=== PATIENT | female | born 1990 | race Caucasian/White ===

== ENCOUNTER 2017-08-18 20:11 | Emergency (ER) | payer MEDICAID ==
[~2017-08-18] VITALS: Ht 157.5 cm; Wt 120.5 kg
[2017-08-18 20:32] VITALS: BP 128/62; PULSE 77; RESP 14; TEMP 98.6; O2SAT 99
--- NOTE | 2017-08-18 21:09 | PD ---
HPI Chief Complaint: Aluminum Welder Problem/Complaint Time Seen by Provider: 21:00 Travel History International Travel<30 days: No Contact w/Intl Traveler<30days: No Traveled to known affect area: No History of Present Illness HPI 27yo F with PMH of hypothyroidism presents to the ED with c/o vaginal bleeding and cramping today. Said her LMP is sometime in June. Pt did not take a test today but had a tissue passed with her contractions and thinks she may have had a miscarriage. Denies any fever, chest pain, sob, vomiting, dysuria, focal weakness or numbness. PFSH Past Medical History ?: Unknown LMP: Social History Tobacco Use: No Allergies-Medications (Allergen,Severity, Reaction): Coded Allergies: hydrocodone (Verified Allergy, Unknown, 08/18/17) Reported Meds & Prescriptions Reported Meds & Active Scripts Active Macrobid (Nitrofurantoin Monohydrate Macrocrystals) 100 Mg Capsule 100 Mg PO BID 5 Days Review of Systems Except as stated in HPI: all other systems reviewed are Neg Physical Exam Narrative GENERAL: 27yo F not in distress. SKIN: Focused skin assessment warm/dry. HEAD: Atraumatic. Normocephalic. CARDIOVASCULAR: Regular rate and rhythm. No murmur appreciated. RESPIRATORY: No accessory muscle use. Clear to auscultation. Breath sounds equal bilaterally. GASTROINTESTINAL: Abdomen soft, non-tender, nondistended. No rebound tenderness or guarding. PELVIC:Cervical os is closed. There is small amounts of blood in vaginal vault. No CMT or adnexal tenderness bilaterally. MUSCULOSKELETAL: No obvious deformities. No clubbing. No cyanosis. No edema. NEUROLOGICAL: Awake and alert. No obvious cranial nerve deficits. Motor grossly within normal limits. Normal speech. PSYCHIATRIC: Appropriate mood and affect; insight and judgment normal. Data Data Last Documented VS Vital Signs Date Time Temp Pulse Resp B/P (MAP) Pulse Ox O2 Delivery O2 Flow Rate FiO2 08/19/17 00:45 98.2 89 16 134/67 (89) 100 Nasal Cannula Orders Orders Beta Hcg (Quant/Titer) (08/18/17 21:06) Complete Blood Count With Diff (08/18/17 21:06) Basic Metabolic Panel (Bmp) (08/18/17 21:06) Gc And Chlamydia Pcr (08/18/17 21:06) Type And Screen (08/18/17 21:06) Wet Prep Profile (08/18/17 21:06) Thyroid Stimulating Hormone (08/18/17 21:24) Urinalysis - C+S If Indicated (08/18/17 22:30) Us Pelvis (Ques Pr/Ect)W Trans (08/18/17 ) Ed Discharge Order (08/19/17 00:18) Labs Laboratory Tests Test 08/18/17 21:24 08/18/17 21:32 08/18/17 22:34 White Blood Count 15.0 TH/MM3 Red Blood Count 4.82 MIL/MM3 Hemoglobin 12.7 GM/DL Hematocrit 38.1 % Mean Corpuscular Volume 79.0 FL Mean Corpuscular Hemoglobin 26.3 PG Mean Corpuscular Hemoglobin Concent 33.3 % Red Cell Distribution Width 12.1 % Platelet Count 321 TH/MM3 Mean Platelet Volume 8.4 FL Neutrophils (%) (Auto) 67.5 % Lymphocytes (%) (Auto) 23.7 % Monocytes (%) (Auto) 5.5 % Eosinophils (%) (Auto) 1.4 % Basophils (%) (Auto) 1.9 % Neutrophils # (Auto) 10.1 TH/MM3 Lymphocytes # (Auto) 3.6 TH/MM3 Monocytes # (Auto) 0.8 TH/MM3 Eosinophils # (Auto) 0.2 TH/MM3 Basophils # (Auto) 0.3 TH/MM3 CBC Comment DIFF FINAL Differential Comment Blood Urea Nitrogen 11 MG/DL Creatinine 0.69 MG/DL Random Glucose 84 MG/DL Calcium Level 8.6 MG/DL Sodium Level 136 MEQ/L Potassium Level 3.4 MEQ/L Chloride Level 103 MEQ/L Carbon Dioxide Level 23.8 MEQ/L Anion Gap 9 MEQ/L Estimat Glomerular Filtration Rate 103 ML/MIN Thyroid Stimulating Hormone 3rd Gen 3.440 uIU/ML Human Chorionic Gonadotropin, Quant 3904 MIU/ML Clue Cells (Wet Prep) NONE SEEN Vaginal Trichomonas (Wet Prep) NONE SEEN Vaginal Yeast (Wet Prep) NONE SEEN Chlamydia trachomatis DNA (PCR) NOT DETECTED Neisseria gonorrhoeae DNA (PCR) NOT DETECTED Urine Color YELLOW Urine Turbidity HAZY Urine pH 6.0 Urine Specific [place] 1.020 Urine Protein NEG mg/dL Urine Glucose (UA) NEG mg/dL Urine Ketones NEG mg/dL Urine Occult Blood LARGE Urine Nitrite NEG Urine Bilirubin NEG Urine Leukocyte Esterase SMALL Urine RBC 50-99 /hpf Urine WBC 6-8 /hpf Urine Squamous Epithelial Cells 6-8 /hpf Urine Bacteria FEW /hpf Microscopic Urinalysis Comment CULT NOT INDICATED MDM Medical Decision Making Medical Screen Exam Complete: Yes Emergency Medical Condition: Yes Differential Diagnosis complete vs. incomplete vs. UTI vs. ectopic Narrative Course 27yo F with cramping and vaginal bleeding. Pt had a passage of tissue likely products of conception. Labs reviewed, mild leukocytosis. H/H normal. bHCG 3904. UA showed large blood. WBC 6-8 with squamous 6-8. Few bacteria. Will cover with macrobid. Wet prep negative. bHCG 3904. Type and screen O+ so pt does not need rhogam. US pelvis showed no definite intrauterine gestational sac. Complex heterogenous collection in endometrium may reflect blood products/ in progress. Bilateral ovaries showed no mass. No free fluid. Pt instructed to follow up with OBGYN in 1-2 days. Return precautions given. Diagnosis Primary Impression: Vaginal bleeding during Referrals: Yolande Scales MD 1 day Patient Instructions: General Instructions Departure Forms: Tests/Procedures Additional Instructions: Please follow up with OBGYN in 1-2 days. Return to the ED if symptoms worsen. Med/Other Pt SpecificInfo: Prescription(s) given Scripts Nitrofurantoin Monohydrate Macrocrystals (Macrobid) 100 Mg Capsule 100 MG PO BID for Infection for 5 Days, #10 CAP 0 Refills Prov: Jeannie Rousseau DO 08/19/17 Disposition: 01 DISCHARGE HOME Condition: Stable Jeannie Rousseau DO Aug 18, 2017 21:09
[2017-08-18 21:35] LABS: AUTOMATED NEUTROPHIL # 10.1 TH/MM3 (1.8-7.7); BASOPHIL # 0.3 TH/MM3 (0-0.2); BASOPHIL % 1.9 % (0.0-2.0); EOSINOPHIL # 0.2 TH/MM3 (0-0.4); EOSINOPHIL % 1.4 % (0.0-4.0); HEMATOCRIT 38.1 % (35.0-46.0); HEMOGLOBIN 12.7 GM/DL (11.6-15.3); LYMPH % 23.7 % (9.0-44.0); LYMPHOCYTE # 3.6 TH/MM3 (1.0-4.8); MEAN CORPUSCULAR HEMOGLOBIN 26.3 PG (27.0-34.0); MEAN CORPUSCULAR HGB CONC 33.3 % (32.0-36.0); MEAN PLATELET VOLUME 8.4 FL (7.0-11.0); MONO % 5.5 % (0.0-8.0); MONOCYTE # 0.8 TH/MM3 (0-0.9); NEUT % 67.5 % (16.0-70.0); PLATELET COUNT 321 TH/MM3 (150-450); RED BLOOD COUNT 4.82 MIL/MM3 (4.00-5.30); RED CELL DISTRIBUTION WIDTH 12.1 % (11.6-17.2)
[2017-08-18 21:42] LABS: BICARBONATE 23.8 MEQ/L (21.0-32.0); CALCIUM 8.6 MG/DL (8.5-10.1)
[2017-08-18 21:46] LABS: CREATININE 0.69 MG/DL (0.50-1.00)
[2017-08-18 22:45] VITALS: BP 125/68; PULSE 89; RESP 18; TEMP 98.6; O2SAT 100
[2017-08-18 23:07] LABS: BILIRUBIN, URINE NEG (NEG); BLOOD, URINE LARGE (NEG); GLUCOSE,URINE NEG (NEG); KETONE, URINE NEG (NEG); NITRITE,URINE NEG (NEG); URINE LEUKOCYTE ESTERASE SMALL (NEG)
[2017-08-18 23:09] LABS: URINE COLOR YELLOW (YELLW/STRAW)
[2017-08-18 23:12] LABS: BACTERIA, URINE FEW /hpf
--- NOTE | 2017-08-18 23:26 | RADRPT ---
EXAM DATE/TIME: 08/18/2017 22:34 [facility] COMPARISON: No previous studies available for comparison. INDICATIONS : Miscarriage. LAB(S): [facility] MEDICAL HISTORY : . SURGICAL HISTORY : None. ENCOUNTER: Initial ACUITY: 1 day PAIN SCORE: 3/10 LOCATION: Bilateral pelvis MEASUREMENTS: UTERUS: 7.9 x 5.3 x cm ENDOMETRIAL STRIPE: 17 mm RIGHT OVARY: 3.0 x 1.6 x 2.5 cm LEFT OVARY: 2.8 x 1.4 x 1.5 cm FREE FLUID: No CROWN RUMP LENGTH: Not visualized. = WKS DAYS FHR: Not visualized. BPM FINDINGS: UTERUS: There is an ill-defined complex heterogeneous collection in the endometrium measuring 2.7 x 0.9 x 2.1 cm. There is slight adjacent hyperemia. No definite gestational sac or. RIGHT OVARY: Ovary contains no mass or significant cystic lesion. LEFT OVARY: Ovary contains no mass or significant cystic lesion. MISCELLANEOUS: No free fluid. CONCLUSION: 1. No definite intrauterine gestational sac. 2. Complex heterogeneous collection in the endometrium measuring 2.7 x 0.9 x 2.1 cm may reflect blood products/ in progress. 1. Isac Medina MD on August 18, 2017 at 23:23 Board Certified Radiologist. This report was verified electronically.
[2017-08-19] MEDS ORDERED: MACR100C2 PO (00:17)
[2017-08-19 00:45] VITALS: BP 134/67; TEMP 98.2
== END 2017-08-19 00:45 | disposition home or self-care (01) ==
LOC: PHED 20:11
DX: O20.9 Hemorrhage in early pregnancy, unspecified (principal); Z88.5 Allergy status to narcotic agent
CPT/HCPCS: 76700; 76817; 80048; 81001; 84443; 84702; 85025; 86850; 86900; 86901; 87210; 87491; 87591; 88305